=== PATIENT | female | born 1960 | race Caucasian/White ===

== ENCOUNTER 2016-08-30 11:19 | Emergency (ER) | payer BC ==
[~2016-08-30] VITALS: Ht 162.6 cm; Wt 65.0 kg
[~2016-08-30 11:19] MED LIST: CEPH500C3 PO; LORT5TAB PO; Z.0.NO CURRENT MEDS
[2016-08-30 11:29] VITALS: BP 128/82; PULSE 66; RESP 14; TEMP 98.2; O2SAT 100
[2016-08-30] MEDS ORDERED: ESTRGEL TOP (11:39)
[2016-08-30] MEDS ORDERED: LIDOCAINE 1%/EPINEPHrine 1:100,000 SOLN 30 ML VIAL INFIL ONE ×2 (12:00)
[2016-08-30] MEDS ORDERED: LIDOCAINE 1%/EPINEPHrine 1:100,000 SOLN 20 ML VIAL INFIL ONE ×2 (12:00)
[2016-08-30] MEDS ORDERED: TETANUS/DIPHTHERIA TOXOID ADULT 0.5 ML VIAL IM ONE (12:00)
--- NOTE | 2016-08-30 12:09 | PD ---
HPI Chief Complaint: Foreign Body Time Seen by Provider: 12:03 Travel History International Travel<30 days: No Contact w/Intl Traveler<30days: No Traveled to known affect area: No History of Present Illness HPI 56-year-old female presents to the emergency room for evaluation of foreign body to her right plantar foot that occurred just prior to arrival. Patient was wearing sandals and states the piece of mulch pierced through the bottom of her shoe and into her foot, getting stuck in the bottom of the foot. She tried to pull the foreign body out but states there was too much resistance so she came to the emergency room for numbing medication. Denies paresthesias or loss of range of motion. Reports extreme pain. Unknown last tetanus. PFSH Past Medical History Diminished Hearing: No Tetanus Vaccination: Unknown Influenza Vaccination: No Menopausal: Yes Past Surgical History Hysterectomy: Yes (PARTIAL 2006) Social History Alcohol Use: Yes (1 mimosa a day) Tobacco Use: No Substance Use: No Allergies-Medications (Allergen,Severity, Reaction): Coded Allergies: No Known Allergies (Verified , 08/30/16) Reported Meds & Prescriptions Reported Meds & Active Scripts Active Reported Estrogel Topical (Estradiol) 0.06% Gel 1 Applic TOP HS Review of Systems Except as stated in HPI: all other systems reviewed are Neg Physical Exam Narrative GENERAL: Well-nourished, well-developed female in no acute distress. Afebrile. Ambulatory with a lip. SKIN: Warm and dry. There is a 3 mm wooden foreign body piercing the right plantar surface of the foot. HEAD: Normocephalic. EYES: No scleral icterus. No injection or drainage. NECK: Supple, trachea midline. No JVD or lymphadenopathy. Data Data Last Documented VS Vital Signs Date Time Temp Pulse Resp B/P Pulse Ox O2 Delivery O2 Flow Rate FiO2 08/30/16 11:40 66 16 08/30/16 11:29 98.2 128/82 100 Orders Tetanus/Diphtheria Tox Adult (Tetanus/Di (08/30/16 12:00) Lidocai-Epi 1%-1:100,000 Inj (Xylocaine- (08/30/16 12:00) Lidocai-Epi 1%-1:100,000 Inj (Xylocaine- (08/30/16 12:00) Lidocai-Epi 1%-1:100,000 Inj (Xylocaine- (08/30/16 12:00) MDM Medical Decision Making Medical Screen Exam Complete: Yes Emergency Medical Condition: Yes Medical Record Reviewed: Yes Differential Diagnosis Foreign body versus laceration versus abscess Narrative Course 56-year-old female presents to the emergency room for evaluation of foreign body to the right plantar foot. Patient stepped on a piece of mulch that pierced through the bottom of her shoe and into her foot before becoming embedded. She attempted to remove it but was unable to so she came to the emergency room to receive numbing medication. Patient denies significant pain, drainage, loss of range of motion, or paresthesias. Physical exam reveals a 3 mm foreign body on the plantar surface 2 cm below the great toe. Area was numbed and foreign body removed. Patient discharged with ciprofloxacin and told to follow up with a primary care physician or return for worsening symptoms. She understands and agrees to this plan. Procedures Procedure Narrative Foreign body removal: The area was prepped and was sterilely draped. A subcutaneous wheal of 1% lidocaine with epinephrine with a total number 3 mL was used to anesthetize the area properly. A number 11 scalpel was used to make a 0.5 cm incision across the area of foreign body. It was removed without difficulty. Area was cleansed and dressed. Diagnosis Primary Impression: Foreign body in foot, right Qualified Code: S90.851A - Foreign body in foot, right, initial encounter Referrals: Primary Care Physician Patient Instructions: General Instructions, Soft Tissue Foreign Body (ED) Additional Instructions: Rest and drink plenty of fluids. Keep wounds clean and dry. Apply triple antibiotic ointment. Take ciprofloxacin as directed, until gone. Follow up with a primary care physician. Return to emergency room for worsening symptoms, as discussed. Med/Other Pt SpecificInfo: Prescription(s) given Scripts Ciprofloxacin (Cipro)500 Mg [id number] Mg PO BID 5 Days Ref 0 Prov:Mateo Grover MD 08/30/16 Disposition: 01 DISCHARGE HOME Condition: Stable Kelsey Glover Aug 30, 2016 12:09
[2016-08-30] MEDS ORDERED: CIPR-9 PO (12:22)
== END 2016-08-30 12:43 | disposition home or self-care (01) ==
LOC: PHEFT 11:19
DX: S90.851A Superficial foreign body, right foot, initial encounter (principal); Z23 Encounter for immunization; W45.8XXA Other foreign body or object entering through skin, initial encounter
CPT/HCPCS: 28190; 90471; 90714